=== PATIENT | female | born 1945 | race Caucasian/White ===

== ENCOUNTER 2017-07-14 09:08 | Emergency (ER) | payer OTHER, SELFPAY ==
[~2017-07-14] VITALS: Ht 162.6 cm; Wt 74.2 kg
[2017-07-14 09:13] VITALS: BP 120/79
== END 2017-07-14 11:00 | disposition home or self-care (01) ==
LOC: ED 10:32
DX: M79.661 Pain in right lower leg (principal); G89.29 Other chronic pain
CPT/HCPCS: 99284

== ENCOUNTER 2017-07-16 09:54 | Emergency (ER) | payer OTHER ==
[~2017-07-16] VITALS: Ht 162.6 cm; Wt 73.9 kg
[2017-07-16 10:12] VITALS: BP 130/83
== END 2017-07-16 12:36 | disposition home or self-care (01) ==
LOC: ED 12:33
DX: S83.92XA Sprain of unspecified site of left knee, initial encounter (principal); V89.2XXA Person injured in unspecified motor-vehicle accident, traffic, initial encounter; Y93.89 Activity, other specified; Y92.488 Other paved roadways as the place of occurrence of the external cause; Y99.8 Other external cause status; Z85.038 Personal history of other malignant neoplasm of large intestine
CPT/HCPCS: 29505

== ENCOUNTER 2017-07-19 12:21 | Emergency (ER) | payer OTHER ==
[~2017-07-19] VITALS: Ht 162.6 cm; Wt 74.0 kg
[2017-07-19 12:30] VITALS: BP 155/88
[2017-07-19] MEDS ORDERED: IBUPROFEN 200 MG TABLET PO ONE (13:30)
== END 2017-07-19 13:39 | disposition home or self-care (01) ==
LOC: ED 13:10
DX: S83.92XA Sprain of unspecified site of left knee, initial encounter (principal); F17.210 Nicotine dependence, cigarettes, uncomplicated; X50.1XXA Overexertion from prolonged static or awkward postures, initial encounter; Y99.8 Other external cause status; Y93.E9 Activity, other interior property and clothing maintenance; Y92.099 Unspecified place in other non-institutional residence as the place of occurrence of the external cause
CPT/HCPCS: 99282

== ENCOUNTER 2017-11-11 12:52 | Emergency (ER) | payer OTHER ==
[~2017-11-11] VITALS: Ht 162.6 cm; Wt 77.8 kg
[2017-11-11 12:56] VITALS: BP 133/83
== END 2017-11-11 14:19 | disposition home or self-care (01) ==
LOC: ED 14:05
DX: S93.622A Sprain of tarsometatarsal ligament of left foot, initial encounter (principal); G89.29 Other chronic pain; M54.9 Dorsalgia, unspecified; M25.569 Pain in unspecified knee; X50.0XXA Overexertion from strenuous movement or load, initial encounter; Y93.89 Activity, other specified; Y92.89 Other specified places as the place of occurrence of the external cause; Y99.8 Other external cause status
CPT/HCPCS: 99284

== ENCOUNTER 2018-08-20 09:28 | Emergency (ER) | payer MEDICARE, OTHER ==
[~2018-08-20] VITALS: Ht 162.6 cm; Wt 81.5 kg
[2018-08-20 09:32] VITALS: BP 142/71
== END 2018-08-20 10:53 | disposition home or self-care (01) ==
LOC: ED 10:14
DX: S80.01XA Contusion of right knee, initial encounter (principal); G89.29 Other chronic pain; M54.9 Dorsalgia, unspecified; F17.200 Nicotine dependence, unspecified, uncomplicated; X50.1XXA Overexertion from prolonged static or awkward postures, initial encounter; Y93.89 Activity, other specified; Y99.0 Civilian activity done for income or pay; Y92.69 Other specified industrial and construction area as the place of occurrence of the external cause
CPT/HCPCS: 99284

== ENCOUNTER 2018-09-24 07:45 | Emergency (ER) | payer OTHER ==
[~2018-09-24] VITALS: Ht 162.6 cm; Wt 82.7 kg
[2018-09-24 07:51] VITALS: BP 119/80
== END 2018-09-24 09:26 | disposition home or self-care (01) ==
LOC: ED 09:00
DX: G89.11 Acute pain due to trauma (principal); M54.5 Low back pain; M51.37 Other intervertebral disc degeneration, lumbosacral region; V89.2XXA Person injured in unspecified motor-vehicle accident, traffic, initial encounter; Y93.89 Activity, other specified; Y99.8 Other external cause status; Y92.410 Unspecified street and highway as the place of occurrence of the external cause
CPT/HCPCS: 72072; 72110; 99284

== ENCOUNTER 2019-01-17 15:05 | Emergency (ER) | payer OTHER ==
[~2019-01-17] VITALS: Ht 162.6 cm; Wt 82.7 kg
--- NOTE | 2019-01-17 16:38 | NUR ---
PT STATED "I FELL ON THE ICE. I MEAN I WAS DOWN ON ALL FOURS". C/O PAIN TO BILAT KNEES AND HANDS, AND BACK. DENIES HEAD INJURY/LOC, DENIES BLOOD THINNERS. PROVIDED PT WITH GOWN, AWAITING XRAY, ERP FOR EVAL
[2019-01-17 18:24] VITALS: BP 170/58
== END 2019-01-17 18:27 | disposition home or self-care (01) ==
LOC: ED 18:05
DX: S39.012A Strain of muscle, fascia and tendon of lower back, initial encounter (principal); S80.02XA Contusion of left knee, initial encounter; S80.01XA Contusion of right knee, initial encounter; S80.211A Abrasion, right knee, initial encounter; S80.212A Abrasion, left knee, initial encounter; G89.11 Acute pain due to trauma; W00.0XXA Fall on same level due to ice and snow, initial encounter; Y93.89 Activity, other specified; Y92.89 Other specified places as the place of occurrence of the external cause; Y99.8 Other external cause status
CPT/HCPCS: 72110; 99283

== ENCOUNTER 2019-07-08 15:22 | Emergency (ER) | payer MEDICARE ==
[~2019-07-08] VITALS: Ht 162.6 cm; Wt 82.2 kg
[2019-07-08 16:53] VITALS: BP 128/62
== END 2019-07-08 17:10 | disposition home or self-care (01) ==
LOC: ED 17:04
DX: K44.9 Diaphragmatic hernia without obstruction or gangrene (principal)
CPT/HCPCS: 36415; 74176; 80053; 81003; 85025; 99284